=== PATIENT | female | born 1950 | race Caucasian/White ===

== ENCOUNTER 2018-02-27 12:57 | Emergency (ER) | payer MEDICARE, OTHER ==
[~2018-02-27] VITALS: Ht 160 cm; Wt 68.2 kg
[~2018-02-27 12:57] MED LIST: ANXIETY MED; RES15C PO
[2018-02-27 12:58] VITALS: BP 115/70
== END 2018-02-27 14:31 | disposition home or self-care (01) ==
LOC: ER 12:58
DX: M25.561 Pain in right knee (principal); Z79.899 Other long term (current) drug therapy
CPT/HCPCS: 29505; 73564; 99284